=== PATIENT | male | born 1935 | race Caucasian/White ===

== ENCOUNTER 2016-08-09 16:59 | Emergency (ER) | payer BC ==
[2016-08-09 15:20] LABS: BASOPHILS 0.3 %; BASOPHILS ABSOLUTE 0.03 10/3/uL (0.0-0.16); EOSINOPHILS 0.6 %; EOSINOPHILS ABSOLUTE 0.07 10/3/uL (0.0-0.53); ER CBC TAT 0 Hrs 05 Mins; HEMATOCRIT 49.7 % (40.0-51.0); HEMOGLOBIN 16.7 g/dL (13.6-17.8); IMMATURE GRANULOCYTES 0.6 %; IMMATURE GRANULOCYTES ABSOLUTE 0.07 10/3/uL (0.0-0.11); LYMPHOCYTES ABSOLUTE 0.47 10/3/uL (0.67-4.30); MANUAL DIFF NO %; MEAN CORPUS HGB CONC 33.6 g/dL (32.0-36.0); MEAN CORPUSCULAR HEMOGLOB 29.3 pg (26.0-34.0); MEAN CORPUSCULAR VOLUME 87.3 fL (80-100); MONOCYTES 9.1 %; MONOCYTES ABSOLUTE 1.06 10/3/uL (0.21-1.20); NEUTROPHILS 85.4 %; NEUTROPHILS ABSOLUTE 9.91 10/3/uL (2.02-8.40); PLATELET COUNT 231 10/3/uL (150-400); RBC DISTRIBUTION WIDTH 14.3 % (12.0-16.0); RED CELL COUNT 5.69 10/6/uL (4.7-6.1); WHITE BLOOD CELLS 11.6 10/3/uL (4.5-10.5)
[2016-08-09 15:39] LABS: INFLUENZA A SCREEN NEGATIVE (NEGATIVE); INFLUENZA B SCREEN NEGATIVE (NEGATIVE)
[2016-08-09 15:40] LABS: A/G RATIO 0.7 (0.7-1.9); ALBUMIN 3.4 G/DL (3.5-5.0); ALKALINE PHOSPHATASE 96 U/L (45-117); CHLORIDE, SERUM 100 MMOL/L (96-112); CO2 (CARBON DIOXIDE) 27 MMOL/L (24-34); CREATININE 1.02 MG/DL (0.70-1.30); GFR AFRICAN AMERICAN 79 ML/MIN (>=60); GFR NON AFRICAN AMERICAN 68 ML/MIN (>=60); GLOBULIN 4.7 G/DL (2.5-4.1); POTASSIUM, SERUM 3.6 MMOL/L (3.5-5.3); SGOT(AST) 13 U/L (5-40); SGPT(ALT) 16 U/L (5-65); SODIUM, SERUM 137 MMOL/L (135-148); TOTAL BILIRUBIN 0.4 MG/DL (0-1.2); TOTAL PROTEIN 8.1 G/DL (6.0-8.5)
[2016-08-09 15:43] LABS: BUN (BLOOD UREA NITROGEN) 15 MG/DL (6-23); GLUCOSE, SERUM 167 MG/DL (60-99)
[2016-08-09 16:27] LABS: PROCALCITONIN 0.16 ng/mL (<0.5)
[~2016-08-09 16:59] MED LIST: ACCUNEB INH; ADVAIR115P INH; ALA-CORT1 % TOP; ALBUTEROL INH; ASAB PO; ASABAYER PO; AVELOX400 PO; BUDESONIDE; CLARIT10 PO; COREG3 PO; CORTISPORIN0.5 % TOP; DOCUSOFT S100 MG PO; DUONEB INH; FLOVENT220 INH; HYDROCORT0.5 % TOP; HYDROCORT0.51 TOP; HYDROCORT12 EX; HYDROCORTISONE30 GM T; INHALER PO; KLOR-CON M2020 MEQ PO; L20 PO; LEVAQUIN5T PO; LIDODERM T; LIOR10 PO; MAX25 PO; MIRALAXPKT PO; MUCINEX600 MG PO; NEUR100 PO; NORV10 PO; PRIN5 PO; PROVENTSOL INH; PROVHFA INH; QVAR80 MCG INH; SEROQUEL1C PO; SEROQUEL25 PO; SEROQUEL50 MG PO; SPIRIVA INH; STOOL SOFTENER PO; TRAZ50 PO; V5 PO; ZESTRIL20 MG PO; ZOCOR40 PO; ZYRTEC ALLGY10 MG PO
[2016-08-09 17:42] LABS: ALLENS TEST Pos; BE (BASE EXCESS) 6.6 MEQ/L (0 +/- 2.5); CARBOXYHEMOGLOBIN 1.6 % (0-3); HCO3 (ACTUAL BICARBONATE) 33.7 MEQ/L (23-27); HEMOBLOGIN CONTENT 16.9 G/DL (14-18); INSTRUMENT SERIAL # 8087; METHEMOGLOBIN 0.5 % (0-3); O2 CONTENT 22.6 VOL% (18-24); OPERATOR ID 14335; PCO2 (CO2 TENSION) 57 MMHG (35-45); PO2 (O2 TENSION) 86 MMHG (79-93); SAMPLE Arterial; pH 7.39 (7.37-7.43)
[2016-08-09 20:49] LABS: ASCORBIC ACID (UR NOT ORDER) NEG (NEG); BILIRUBIN, URINE NEGATIVE (NEG); ER URINALYSIS TAT 0 Hrs 12 Mins; KETONE, URINE TRACE MG/DL (NEG); LEUKOCYTE ESTERASE(NOT OR NEG (NEG); NITRITE (URINE) NEG (NEG); WBC (NOT ORDERED) (RFLEX) 2 (0-5)
== END 2016-08-09 21:46 | disposition home or self-care (01) ==
LOC: ER 16:59
PROVIDERS: Emergency Medicine
DX: J44.1 Chronic obstructive pulmonary disease with (acute) exacerbation (principal); Z95.1 Presence of aortocoronary bypass graft; F03.90 Unspecified dementia, unspecified severity, without behavioral disturbance, psychotic disturbance, mood disturbance, and anxiety; Z88.8 Allergy status to other drugs, medicaments and biological substances; Z79.82 Long term (current) use of aspirin
CPT/HCPCS: 36600; 71010; 80053; 81001; 82805; 83605; 84145; 85025; 87040; 87804; 93005; 94640; 96374; 99285; J2930